=== PATIENT | male | born 1945 | race Two or more races ===

== ENCOUNTER 2017-12-03 19:12 | Emergency (ER) | payer OTHER ==
[~2017-12-03] VITALS: Ht 175.3 cm; Wt 79.4 kg
[~2017-12-03 19:12] MED LIST: APRESOLINE PO; ATENOLOL25 MG; CARAFATE1 G PO; GLUCOTROL10 MG; GLUCOTROL10 MG PO; LEVAQUIN500 MG PO; PANTOPRAZOLE SO40 MG PO; PLAVIX; TAMS0.4C PO; Tenormin 50MG TAB PO; ZANTAC150 MG PO
[2017-12-03] MEDS ORDERED: CIPRO500 MG PO (20:05)
[2017-12-03] MEDS ORDERED: MUPIROCIN15 GM TOP (20:05)
== END 2017-12-03 20:22 | disposition home or self-care (01) ==
LOC: ER 19:12
DX: L89.892 Pressure ulcer of other site, stage 2 (principal)

== ENCOUNTER 2018-11-01 07:35 | Emergency (ER) | payer OTHER ==
[~2018-11-01] VITALS: Ht 177.8 cm; Wt 86.2 kg
[~2018-11-01 07:35] MED LIST changes: +CIPRO500 MG PO; +MUPIROCIN15 GM TOP
== END 2018-11-01 14:08 | disposition home or self-care (01) ==
LOC: ER 07:35
DX: M62.81 Muscle weakness (generalized) (principal); T38.3X5A Adverse effect of insulin and oral hypoglycemic [antidiabetic] drugs, initial encounter; Y92.89 Other specified places as the place of occurrence of the external cause

== ENCOUNTER → 2019-04-22 | Outpatient (CLI) | payer OTHER | END | disposition home or self-care (01) | LOC: RAD 11:33 | DX: Z01.811 Encounter for preprocedural respiratory examination (principal) ==

== ENCOUNTER 2020-08-23 10:55 | Outpatient (CLI) | payer OTHER | END 2020-08-23 14:02 | disposition home or self-care (01) | LOC: RAD 10:55 | PROVIDERS: ATTEND Specialist | DX: J45.998 Other asthma (principal) ==

== ENCOUNTER 2021-08-23 15:03 | Emergency (ER) | payer OTHER ==
[~2021-08-23] VITALS: Ht 170.2 cm; Wt 77.1 kg
[2021-08-23] MEDS ORDERED: RESTORIL30 M1 PO (15:39)
[2021-08-24] MEDS ORDERED: KAYEXALATE15 GM/60 M PO (17:56)
== END 2021-08-24 18:29 | disposition home or self-care (01) ==
LOC: ER 15:03
DX: K59.00 Constipation, unspecified (principal); R10.9 Unspecified abdominal pain; I10 Essential (primary) hypertension; E11.9 Type 2 diabetes mellitus without complications; Z79.84 Long term (current) use of oral hypoglycemic drugs; Z72.0 Tobacco use

== ENCOUNTER 2021-11-20 14:04 | Outpatient (CLI) | payer OTHER ==
[~2021-11-20 14:04] MED LIST changes: +KAYEXALATE15 GM/60 M PO; +RESTORIL30 M1 PO
== END 2021-11-20 14:20 | disposition home or self-care (01) ==
LOC: PPH VACUNA 14:04
PROVIDERS: ATTEND Emergency Medicine Pediatric Emergency Medicine
DX: Z23 Encounter for immunization (principal)